=== PATIENT | male | born 1975 | race Caucasian/White ===

== ENCOUNTER 2021-07-09 11:29 | Emergency (ER) | payer MEDICARE ==
[~2021-07-09] VITALS: Ht 172.7 cm; Wt 97.5 kg
[2021-07-09 12:57] LABS: HEMOGLOBIN 17.8 gm/dl (14.0-17.5); RED BLOOD COUNT 5.59 M/UL (4.20-5.50); WHITE BLOOD COUNT 10.7 K/UL (4.5-11.0)
[2021-07-09 13:30] LABS: BUN/CREATININE RATIO 8 (0-10)
[2021-07-09] MEDS ORDERED: LISINOPRIL20 MG PO (17:52)
== END 2021-07-09 18:00 | disposition home or self-care (01) ==
LOC: ER1 11:29
PROVIDERS: Physician Assistant Medical
DX: R07.89 Other chest pain (principal); I10 Essential (primary) hypertension; Z20.822 Contact with and (suspected) exposure to COVID-19; Z86.711 Personal history of pulmonary embolism; Z88.5 Allergy status to narcotic agent; Z79.82 Long term (current) use of aspirin; Z79.899 Other long term (current) drug therapy; Z87.891 Personal history of nicotine dependence; Z85.828 Personal history of other malignant neoplasm of skin
CPT/HCPCS: 51701; 71045; 80053; 82550; 82553; 83874; 84484; 85025; 85379; 85610; 85730; 93005; 96374; 96376; 99285; J0360; Q9967; U0002